=== PATIENT | female | born 1970 | race Two or more races ===

== ENCOUNTER 2023-05-06 23:18 | Inpatient (IN) | payer MEDICAID ==
[~2023-05-06] VITALS: Ht 160 cm; Wt 61.2 kg
[2023-05-07] MEDS ORDERED: HALOPERIDOL LACTATE 5 MG/ML VIAL IM ONE (00:15)
[2023-05-07] MEDS ORDERED: DiphenhydrAMINE HCL 50 MG/ML VIAL IM ONE (00:15)
[2023-05-07] MEDS ORDERED: LORazepam 2 MG/ML VIAL IM ONE (00:15)
[2023-05-07 00:43] LABS: COVID AG,FIA SOURCE NASOPHARYNGEAL
[2023-05-07 01:15] LABS: BASOPHILS % (AUTO) 0.2 % (0.0-2.0); EOSINOPHILS % (AUTO) 0.1 % (1.0-6.0); HEMATOCRIT 35.7 % (36-46); HEMOGLOBIN 12.4 g/dL (12.0-16.0); LYMPHOCYTES # (AUTO) 0.9 K/uL (1.0-4.8); LYMPHOCYTES % (AUTO) 18.8 % (22.0-44.0); MEAN CORPUSCULAR HEMOGLOBIN 29.6 pg (26.0-34.0); MEAN CORPUSCULAR HGB CONC 34.8 G/dL (31.0-37.0); MEAN CORPUSCULAR VOLUME 85 fL (80-100); MONOCYTES # (AUTO) 0.3 K/uL (0.1-1.0); NEUTROPHILS # (AUTO) 3.5 K/uL (1.8-7.7); NEUTROPHILS % (AUTO) 74.9 % (40.0-70.0); PLATELET COUNT (AUTO) 236 K/uL (150-450); RED CELL DISTRIBUTION WIDTH 13.6 % (11.5-14.5)
[2023-05-07 01:25] LABS: ANION GAP 14 mmol/L (8-16); CALCIUM, TOTAL 8.6 mg/dL (8.8-10.5); CARBON DIOXIDE 26 mmol/L (22-29); CHLORIDE 100 mmol/L (98-107); CREATININE 0.72 mg/dL (0.60-1.30); GLOMERULAR FILTR. RATE CALC > 60 mL/min (>60); GLUCOSE,RANDOM 106 mg/dL (70-110); POTASSIUM 3.1 mmol/L (3.5-5.1); SODIUM SERUM 140 mmol/L (136-145)
[2023-05-07 01:30] LABS: ALANINE AMINOTRANSFERASE 19 U/L (12-78); ALBUMIN 3.3 g/dL (3.4-5.0); ALKALINE PHOSPHATASE 75 U/L (46-116); ASPARTATE AMINOTRANSFERASE 23 U/L (15-37); BILIRUBIN,TOTAL 0.8 mg/dL (0.1-1.0); TOTAL PROTEIN, SERUM 6.8 g/dL (6.4-8.2)
[2023-05-07] MEDS ORDERED: POTASSIUM CHLORIDE 10% 40 MEQ/30 ML LIQUID UDCUP PO ONE ×2 (01:30→03:30)
[2023-05-07] MEDS ORDERED: LORazepam 2 MG TABLET PO PRN (07:00)
[2023-05-07] MEDS ORDERED: HALOPERIDOL 5 MG TABLET PO PRN (07:00)
[2023-05-07] MEDS ORDERED: ZOLPIDEM TARTRATE 10 MG TABLET PO PRN (07:00)
[2023-05-07 13:38] VITALS: TEMP 97
[2023-05-07 13:40] VITALS: BP 127/73; PULSE 93; RESP 18; TEMP 97; O2SAT 98
[2023-05-07 17:00] VITALS: TEMP 97.9
[2023-05-07 20:03] VITALS: BP 120/68; PULSE 92; RESP 18; TEMP 97.5
[2023-05-07] MEDS ORDERED: BENZOCAINE/MENTHOL LOZENGE PO PRN (21:45)
[2023-05-07] MEDS ORDERED: ACETAMINOPHEN 325 MG TABLET PO PRN (21:45)
[2023-05-07] MEDS ORDERED: MAG HYDROX/AL HYDROX/SIMETH ES 30 ML SUSPENSION UDCUP PO PRN (21:45)
[2023-05-07] MEDS ORDERED: ONDANSETRON HCL 4 MG TABLET PO PRN (21:45)
[2023-05-07] MEDS ORDERED: PETROLATUM,WHITE 28 GM JELLY TP PRN (21:45)
[2023-05-07] MEDS ORDERED: MAGNESIUM HYDROXIDE SUSPENSION 30 ML UDCUP PO PRN (21:45)
[2023-05-07] MEDS ORDERED: ALBUTEROL SULFATE HFA 90 MCG/PUFF 8 GM INHALER IH PRN (21:45)
[2023-05-07] MEDS ORDERED: OMEPRAZOLE 20 MG CAPSULE PO PRN (21:45)
[2023-05-07] MEDS ORDERED: IBUPROFEN 600 MG TABLET PO PRN (21:45)
[2023-05-07] MEDS ORDERED: LOPERAMIDE HCL 2 MG CAPSULE PO PRN (21:45)
[2023-05-07] MEDS ORDERED: DOCUSATE SODIUM 100 MG CAPSULE PO PRN (21:45)
[2023-05-07] MEDS ORDERED: BACITRACIN 28 GM OINTMENT TP PRN (21:45)
[2023-05-07] MEDS ORDERED: CloNIDine HCL 0.1 MG TABLET PO PRN (21:45)
[2023-05-08] MEDS: POTASSIUM CHLORIDE 20 MEQ ER TABLET PO ONE (06:34)
[2023-05-08 06:54] VITALS: BP 123/73; PULSE 84
[2023-05-08 08:27] VITALS: BP 124/72; PULSE 81; RESP 18; TEMP 97.3; O2SAT 99
[2023-05-08 09:00] LABS: ANION GAP 15 mmol/L (8-16); CALCIUM, TOTAL 9.1 mg/dL (8.8-10.5); CARBON DIOXIDE 24 mmol/L (22-29); CHLORIDE 101 mmol/L (98-107); CHOL/HDL RATIO 2.9 (3.9-5.7); CHOLESTEROL 177 mg/dL (131-200); CREATININE 0.78 mg/dL (0.60-1.30); GLOMERULAR FILTR. RATE CALC > 60 mL/min (>60); GLUCOSE,RANDOM 55 mg/dL (70-110); HDL CHOLESTEROL 61 mg/dL (40-60); LDL CHOL (CALC.) 102 mg/dL (0-130); POTASSIUM 3.8 mmol/L (3.5-5.1); SODIUM SERUM 140 mmol/L (136-145); TRIGLYCERIDES 69 mg/dL (15-150)
[2023-05-08] MEDS: BACITRACIN 28 GM OINTMENT TP SCH ×2 (09:00→17:00)
[2023-05-08 09:47] LABS: HEMOGLOBIN A1C 5.7 % (3.8-5.6)
[2023-05-08 09:47] LABS: GLUCOMETER DEV NAME(LOC) BV3S.; GLUCOSE,POINT OF CARE 46 MG/DL (70-110)
[2023-05-08 09:48] VITALS: BP 120/58; PULSE 86; RESP 18; TEMP 97.2; O2SAT 99
[2023-05-08 09:52] VITALS: BP 111/58; PULSE 78; RESP 16; O2SAT 99
[2023-05-08 09:56] VITALS: BP 119/67; PULSE 86; RESP 16; TEMP 97.2
[2023-05-08 20:12] VITALS: BP 118/61; PULSE 84; RESP 18; TEMP 97.8; O2SAT 99
[2023-05-08 21:41] LABS: GLUCOMETER DEV NAME(LOC) BV3S.; GLUCOSE,POINT OF CARE 57 MG/DL (70-110)
[2023-05-08 21:41] LABS: GLUCOMETER DEV NAME(LOC) BV3S.; GLUCOSE,POINT OF CARE 81 MG/DL (70-110)
[2023-05-08 21:42] LABS: GLUCOMETER DEV NAME(LOC) BV3S.; GLUCOSE,POINT OF CARE 140 MG/DL (70-110)
[2023-05-08] MEDS ORDERED: INSULIN LISPRO 100 UNITS/ML SQ PRN (21:45)
[2023-05-08] MEDS ORDERED: GLUCAGON,HUMAN RECOMBINANT 1 MG VIAL IM PRN (21:45)
[2023-05-08] MEDS ORDERED: GLUCAGON,HUMAN RECOMBINANT 1 MG VIAL IM ONE (22:09)
[2023-05-09] MEDS: POTASSIUM CHLORIDE 20 MEQ ER TABLET PO ONE (06:39)
[2023-05-09 06:41] LABS: GLUCOMETER DEV NAME(LOC) BV3S.; GLUCOSE,POINT OF CARE 74 MG/DL (70-110)
[2023-05-09 08:16] VITALS: BP 127/82; PULSE 100; RESP 18; TEMP 97.9; O2SAT 96
[2023-05-09] MEDS: BACITRACIN 28 GM OINTMENT TP SCH ×2 (08:34→16:30)
[2023-05-09 11:41] LABS: GLUCOMETER DEV NAME(LOC) BV3S.; GLUCOSE,POINT OF CARE 80 MG/DL (70-110)
[2023-05-09] MEDS: RisperiDONE 3 MG TABLET PO SCH (16:27)
[2023-05-09 16:37] LABS: GLUCOMETER DEV NAME(LOC) BV3S.; GLUCOSE,POINT OF CARE 91 MG/DL (70-110)
[2023-05-09 20:17] VITALS: BP 132/82; PULSE 98; RESP 19; TEMP 98.2; O2SAT 99
[2023-05-09 21:11] LABS: GLUCOMETER DEV NAME(LOC) BV3S.; GLUCOSE,POINT OF CARE 89 MG/DL (70-110)
[2023-05-10 06:41] LABS: GLUCOMETER DEV NAME(LOC) BV3S.; GLUCOSE,POINT OF CARE 111 MG/DL (70-110)
[2023-05-10] MEDS: RisperiDONE 3 MG TABLET PO SCH ×2 (08:12→17:00)
[2023-05-10] MEDS: BACITRACIN 28 GM OINTMENT TP SCH ×2 (08:15→17:00)
[2023-05-10 08:49] VITALS: BP 126/78; PULSE 100; RESP 18; TEMP 97.9; O2SAT 99
[2023-05-10 12:11] LABS: GLUCOMETER DEV NAME(LOC) BV3S.; GLUCOSE,POINT OF CARE 107 MG/DL (70-110)
[2023-05-10 17:32] LABS: GLUCOMETER DEV NAME(LOC) BV3S.; GLUCOSE,POINT OF CARE 134 MG/DL (70-110)
[2023-05-10 20:35] VITALS: BP 117/72; PULSE 88; RESP 17; TEMP 97.2; O2SAT 98
[2023-05-10 21:27] LABS: GLUCOMETER DEV NAME(LOC) BV3S.; GLUCOSE,POINT OF CARE 90 MG/DL (70-110)
[2023-05-11] MEDS: RisperiDONE 3 MG TABLET PO SCH ×2 (08:33→16:20)
[2023-05-11] MEDS: BACITRACIN 28 GM OINTMENT TP SCH ×2 (08:41→16:20)
[2023-05-11 08:56] VITALS: BP 115/76; PULSE 96; RESP 16; TEMP 98.3; O2SAT 98
[2023-05-11] MEDS ORDERED: RISP3TAB63 PO (14:07)
== END 2023-05-11 20:00 | disposition home or self-care (01) | DRG 750 ==
LOC: EMS 23:22 → B3A 05-07 10:31
PROVIDERS: ADMIT Psychiatry & Neurology Psychiatry; ATTEND Psychiatry & Neurology Psychiatry
DX: F25.9 Schizoaffective disorder, unspecified (principal); E87.6 Hypokalemia; F41.9 Anxiety disorder, unspecified; Z20.822 Contact with and (suspected) exposure to COVID-19; X78.8XXA Intentional self-harm by other sharp object, initial encounter; G47.00 Insomnia, unspecified; K59.00 Constipation, unspecified; S60.512A Abrasion of left hand, initial encounter; Z78.1 Physical restraint status; Y93.89 Activity, other specified; Y92.89 Other specified places as the place of occurrence of the external cause; Y99.8 Other external cause status
CPT/HCPCS: 80048; 80053; 80061; 82962; 83036; 84703; 85025; 99285; G0480; J1200; J1610; J1630; J2060